=== PATIENT | female | born 1965 | race Caucasian/White ===

== ENCOUNTER 2023-07-19 19:45 | Emergency (ER) | payer BC ==
[2023-07-19] MEDS ORDERED: oxyCODONE 5 MG TABLET PO STA ×2 (20:19→22:05)
--- NOTE | 2023-07-19 21:00 | XRAY Report ---
PROCEDURE: Wrist 4 View RT INDICATIONS: fall, wrist pain TECHNIQUE: 3 views of the wrist were acquired. COMPARISON: None. FINDINGS: Bones: Mildly impacted and displaced distal radius fracture. A linear lucency extends into the metad iaphysis. This is intra-articular. Mildly displaced ulnar styloid fracture. Soft tissues: No suspicious soft tissue calcifications or masses. IMPRESSION: Distal radius fracture. Mildly displaced ulnar styloid fracture. Reviewed by: Jose Carlos Bang MD on 07/19/2023 8:58 PM PDT Approved by: Jose Carlos Bang MD on 07/19/2023 8:58 PM PDT Station ID: [id number]
--- NOTE | 2023-07-19 22:08 | ED Physician Documentation ---
PD HPI UPPER EXT INJURY - Stated complaint Stated Complaint: R WRIST INJ - Chief complaint Chief Complaint: Trauma Ext - History obtained from History obtained from: Patient - History of Present Illness Location: Right, Wrist Type of injury: Fall Where injury occurred: Home Pain level max: 6 Pain level now: 4 Improved by: Rest Worsened by: Moving, Palpating Associated symptoms: No: Numbness, Tingling Contributing factors: No: Anticoagulated - Additonal information Additional information: Patient is a 58-year-old female who presents to the emergency department after a fall. She is visiting from [place]. She fell off a ladder landed on the right wrist and is complaining of pain to the right wrist. No head, neck, back pain. No head injury. Not anticoagulated. No numbness, tingling. Patient is right- handed. Review of Systems Constitutional: denies: Fever, Chills Respiratory: denies: Dyspnea, Cough, Wheezing Skin: denies: Rash Musculoskeletal: denies: Neck pain, Back pain Neurologic: denies: Headache PD PAST MEDICAL HISTORY - Past Medical History Past Medical History: No - Present Medications Home Medications: Ambulatory Orders Medication Instructions Recorded Confirmed oxyCODONE [Roxicodone] 5 - 10 mg PO Q6H PRN #20 tablet 07/19/23 MDD 6 - Allergies Allergies/Adverse Reactions: Allergies Allergy/AdvReac Type Severity Reaction Status Date / Time No Known Drug Allergies Allergy Verified 07/19/23 19:59 - Living Situation Living Situation: reports: With family Living Arrangement: reports: At home - Social History Does the pt have substance abuse?: No - Family History Family history: reports: Non contributory PD ED PE NORMAL - Vitals Vital signs reviewed: Yes - General General: Alert and oriented X 3, No acute distress - HEENT HEENT: Atraumatic (No scalp hematomas or palpable skull fractures.), PERRL, Moist mucous membranes - Neck Neck: Supple, no meningeal sign, No bony TTP - Cardiac Cardiac: RRR, Strong equal pulses - Respiratory Respiratory: No respiratory distress, Clear bilaterally - Abdomen Abdomen: Soft, Non tender, Non distended - Back Back: No spinal TTP - Derm Derm: Warm and dry - Extremities Extremities: Other (R wrist - Tender to palpation over the distal radius, mild swelling. No snuffbox tenderness. Neurovascular intact. Otherwise normal exam of the right upper extremity.) - Neuro Neuro: Alert and oriented X 3 - Psych Psych: Normal mood, Normal affect Results - Vitals Vitals: Vital Signs - 24 hr 07/19/23 07/19/23 07/19/23 19:55 22:05 22:19 Temperature 36.1 C L 37 C 36.8 C Heart Rate 64 73 71 Respiratory 18 20 20 Rate Blood Pressure 112/67 128/74 127/86 H O2 Saturation 98 100 100 Oxygen O2 Source Room air - Rads (name of study) R wrist xray Relevant Findings:: Final report received, See rad report Procedures - Splint (location) - Minor R arm Splint applied by: Physician, Nurse Type of splint: Fiberglass, Volar cock up Other: Patient tolerated well, No complications, Neurovascular intact, Good alignment, Sling provided PD Medical Decision Making - ED course Complexity details: reviewed results, re-evaluated patient, considered differential, d/w patient ED course: 58-year-old female with a right wrist injury after a fall off of a ladder. Has a distal radius fracture and an ulnar styloid fracture. Patient was placed in a splint. Sling given. Pain well controlled. Will prescribe pain medication for home. She will follow-up with her orthopedist when she returns home to [place] in a week. Neurovascular intact after splint application. Patient counseled regarding signs and symptoms for which I believe and urgent re- evaluation would be necessary. Patient with good understanding of and agreement to plan and is comfortable going home at this time This document was made in part using voice recognition software. While efforts are made to proofread this document, sound alike and grammatical errors may occur. Departure - Departure Disposition: 01 Home, Self Care Clinical Impression: Distal radius fracture, right Qualifiers: Encounter type: initial encounter Fracture type: closed Fracture morphology: unspecified fracture morphology Qualified Code(s): S52.501A - Unspecified fracture of the lower end of right radius, initial encounter for closed fracture Condition: Good Instructions: ED Fx Upper Ext Follow-Up: your,orthopedist in 1 week [Other] Prescriptions: oxyCODONE [Roxicodone] 5 - 10 mg PO Q6H PRN #20 tablet MDD 6 PRN Reason: pain Comments: Your prescriptions were sent to [facility] in [facility]. Please use the medication as needed for pain. Please elevate your arm whenever possible, this will help with swelling. You can use the sling as well. It is important to follow-up with an orthopedist when you return home to [place]. These fractures may occasionally require surgery, please take the copy of your x-rays with you. I am prescribing a short course of narcotic pain medication for you. These are potentially dangerous and addictive medications that should be used carefully. These medications may constipate you. Take an [id number] stool softener (docusate) twice daily with plenty of water while taking these medications. If you go 24 hours without a bowel movement, take [id number] miralax, per package instructions. Do not drink or drive while taking these medications. If you received narcotic or sedating medications while in the emergency department, do not drive for 24 hours. Store this medication in a safe, secure place and out of reach of children. It is a violation of federal law to give or sell this medication to another person or to use in a manner other than prescribed. The ED will not refill narcotic prescriptions, including prescriptions lost or stolen. To dispose of unwanted medications: 1. [facility] [address] in [place] has a medication drop box. They accept prescription medications (in pill form) Tuesday through Tuesday 9:00 a.m. to 5:00 p.m. 2. The [facility] [employer] accepts prescription medications (in pill form only) for disposal year round. Call for more information. 3. Contact the [facility] for the next [facility] sponsored prescription drug collection event. , [phone], or [phone]; Forms: PCP List Discharge Date/Time: 07/19/23 22:21
[2023-07-19 22:11] VITALS: O2SAT 100
[2023-07-19 22:19] VITALS: BP 127/86
== END 2023-07-19 22:21 | disposition home or self-care (01) ==
LOC: ED 19:45
DX: S52.501A Unspecified fracture of the lower end of right radius, initial encounter for closed fracture (principal); W11.XXXA Fall on and from ladder, initial encounter
CPT/HCPCS: 29125; 73110; 99283; A9270